=== PATIENT | female | born 1980 | race American Indian/Alaskan Native ===

== ENCOUNTER 2019-01-18 19:46 | Emergency (ER) | payer OTHER ==
[2019-01-18] MEDS ORDERED: SUBLIMAZE IV ONE (20:25)
[2019-01-18] MEDS ORDERED: ZOFRAN IV ONE (20:25)
--- NOTE | 2019-01-18 20:29 | Emergency Department Report ---
HPI - General Chief Complaint: Fall Time Seen by Provider: 01/18/19 20:15 - HPI HPI: [place] 25 The patient is a 38-year-old female presenting with a chief complaint of pain after fall. The patient states this evening while walking home she slipped and fell. Patient states she is not aware of how she landed but was told that she lost consciousness briefly. Patient complains of pain in her head, right shoulder and right side from the fall. Patient gives her pain score of 7/10 Location: [See above] Duration: [See above] Quality: Pain Severity: 7/10 Modifying factors: [see above] Context: [see above] Mode of transportation: [not driving] ED Past Medical Hx - Past Medical History Hx Hypertension: Yes - Surgical History Past Surgical History?: No - Family History Family history: no significant - Social History Smoking Status: Never Smoker Substance Use Type: None - Medications Home Medications: Home Medications Medication Instructions Recorded Confirmed Last Taken Type Cyclobenzaprine [Flexeril] 10 mg PO TID PRN #10 tablet 01/18/19 Unknown Rx HYDROcodone/APAP 5-325 [[place] 1 - 2 each PO Q6HR PRN #10 tablet 01/18/19 Unknown Rx 5/325] Ibuprofen [Motrin 800 MG tab] 800 mg PO Q8HR PRN #20 tablet 01/18/19 Unknown Rx ED Review of Systems ROS: Stated complaint: BACK PAIN(POST FALL) Other details as noted in HPI Constitutional: no symptoms reported Eyes: denies: eye pain ENT: denies: throat pain Respiratory: no symptoms reported Cardiovascular: denies: chest pain Endocrine: no symptoms reported Gastrointestinal: denies: abdominal pain Genitourinary: denies: dysuria Musculoskeletal: arthralgia, myalgia. denies: back pain Neurological: headache Physical Exam - Physical Exam Physical Exam: GENERAL: The patient is well-developed well-nourished female lying on backboard with cervical collar in place HEENT: Normocephalic. Atraumatic. Extraocular motions are intact. Patient has moist mucous membranes. NECK: Supple. Upper cervical tenderness to palpation. No axial step-off. Cervical collar in place CHEST/LUNGS: Clear to auscultation. There is no respiratory distress noted. HEART/CARDIOVASCULAR: Regular. There is no tachycardia. There is no gallop rub or murmur. ABDOMEN: Abdomen is soft, nontender. Patient has normal bowel sounds. There is no abdominal distention. SKIN: There is no rash. There is no edema. There is no diaphoresis. NEURO: The patient is awake, alert, and oriented. The patient is cooperative. The patient has no focal neurologic deficits. The patient has normal speech MUSCULOSKELETAL: There is tenderness to palpation of the right clavicle and sh oulder. There is no tenderness to palpation of the left upper extremity, or bilateral lower extremities. There is no tenderness to palpation of the axial thoracic or lumbar spine. There is no limitation range of motion. There is no evidence of acute injury. ED Medical Decision Making - Radiology Data Radiology results: report reviewed (CT head, CT cervical spine), image reviewed (CT head, CT cervical spine, right shoulder x-ray, chest x-ray with right rib series) interpreted by me: Right shoulder x-ray-no acute fracture, no dislocation Chest x-ray with right rib series x-rays-no pneumothorax. No displaced rib fractures visualized Findings [address] [address] Cat Scan Report Signed Patient: NADIA GUAJARDO MR#: [id number] : 1980 Acct:[id number] Age/Sex: 38 / F ADM Date: 01/18/19 Loc: ED Attendin g Dr: Ordering Physician: CHRISTOPH MORAES MD Date of Service: 01/18/19 Procedure(s): CT cervical spine wo con Accession Number(s): [id number] cc: CHRISTOPH MORAES MD FINAL REPORT EXAM: CT CERVICAL SPINE WO CON HISTORY: pain after fall TECHNIQUE: Helical axial CT imaging of the cervical spine. Images are reconstructed in the sagittal and coronal planes. PRIORS: None. FINDINGS: The vertebral bodies have normal height and alignment. There is no evidence of fracture or subluxation. The paraspinous soft tissues are unremarkable. IMPRESSION: No evidence of acute fracture or subluxation. Transcribed By: MARCELO Di ctated By: DERICK BARRAZA MD Electronically Authenticated By: DERICK ABRRAZA MD Signed Date/Time: 01/18/192222 DD/ 21 TD/TT: 01/18/192221 ]\ Findings [address] [place] [address] Cat Scan Report Signed Patient: NADIA GUAJARDO MR#: [id number] : 1980 Acct:[id number] Age/Sex: 38 / F ADM Date: 01/18/19 Loc: ED Attending Dr: Ordering Physician: CHRISTOPH MORAES MD Date of Service: 01/18/19 Procedure(s): CT head/brain wo con Accession Number(s): [id number] cc: CHRISTOPH MORAES MD FINAL REPORT EXAM: CT HEAD/BRAIN WO CON HISTORY: LOC after fall TECHNIQUE: CT was performed from the foramen magnum through the vertex in the axial plane without the use of intravenous contrast. PRIORS: None. FINDINGS: The artis/white matter attenuation pattern is normal. There is no mass lesion or mass effect. There are no abnormal extra-axial fluid collections. There is no evidence of acute intracranial hemorrhage or infarct. The ventricles are of normal size and configuration. The skull and orbits are unremarkable. There is mucosal thickening in the bilateral maxillary sinuses and left ethmoid air cells. IMPRESSION: Normal CT of the head. Transcribed By: MLG Dictated By: DEIRCK BARRAZA MD Electronically Authenticated By: DERICK BARRAZA MD Signed Date/Time: 01/18/192217 DD/ 16 TD/TT: 01/18/192216 - Differential Diagnosis closed head injury, cervical strain, cervical fracture, ICH Critical care attestation.: If time is entered above; I have spent that time in minutes in the direct care of this critically ill patient, excluding procedure time. ED Disposition Clinical Impression: Closed head injury, Acute cervical myofascial strain, Contusion of right shoulder Disposition: DC-01 TO HOME OR SELFCARE Is pt being admited?: No Does the pt Need Aspirin: No Condition: Stable Instructions: Muscle Strain (ED) Additional Instructions: Return to the emergency department immediately should you develop worsening symptoms, fever, inability to tolerate food or liquid or any other concerns. Prescriptions: Cyclobenzaprine [Flexeril] 10 mg PO TID PRN #10 tablet PRN Reason: Muscle Spasm HYDROcodone/APAP 5-325 [[place] 5/325] 1 - 2 each PO Q6HR PRN #10 tablet PRN Reason: Pain Ibuprofen [Motrin 800 MG tab] 800 mg PO Q8HR PRN #20 tablet PRN Reason: Pain, Moderate (4-6) Referrals: JHOAN GARCIA MD [Primary Care Provider] - 3-5 Days JOE GARCIA MD [Staff Physician] - 3-5 Days (Dr. Garcia is an orthopedic surgeon. Please follow up with him for further evaluation) Time of Disposition: 23:21
--- NOTE | 2019-01-18 22:18 | Cat Scan Report ---
FINAL REPORT EXAM: CT HEAD/BRAIN WO CON HISTORY: LOC after fall TECHNIQUE: CT was performed from the foramen magnum through the vertex in the axial plane without th e use of intravenous contrast. PRIORS: None. FINDINGS: The artis/white matter attenuation pattern is normal. There is no mass lesion or mass effect. There ar e no abnormal extra-axial fluid collections. There is no evidence of acute intracranial hemorrhage or infarct. The ventricles are of normal size and configuration. The skull and orbits are unremarkable . There is mucosal thickening in the bilateral maxillary sinuses and left ethmoid air cells. IMPRESSION: Normal CT of the head.
--- NOTE | 2019-01-18 22:23 | Cat Scan Report ---
FINAL REPORT EXAM: CT CERVICAL SPINE WO CON HISTORY: pain after fall TECHNIQUE: Helical axial CT imaging of the cervical spine. Images are reconstructed in the sagittal and coronal planes. PRIORS: None. FINDINGS: The vertebral bodies have normal height and alignment. There is no evidence of fracture or subluxatio n. The paraspinous soft tissues are unremarkable. IMPRESSION: No evidence of acute fracture or subluxation.
[2019-01-18 23:40] VITALS: BP 133/75
--- NOTE | 2019-01-18 23:41 | XRay Report ---
FINAL REPORT EXAM: XR RIBS UNI W PA CHEST 3+V RT HISTORY: pain after fall TECHNIQUE: Right ribs 4 views PRIORS: None. FINDINGS: No rib fracture identified. No bony lesions seen. No evidence of pneumothorax or pleural effusion wit hin the right sean thorax. Otherwise no acute findings. IMPRESSION: Negative rib series
--- NOTE | 2019-01-18 23:43 | XRay Report ---
FINAL REPORT EXAM: XR SHOULDER 2+V RT HISTORY: pain after fall TECHNIQUE: Three views right shoulder PRIORS: None. FINDINGS: No fractures are identified. No dislocation seen. The acromioclavicular joint is intact. Adjacent b shirley and soft tissue structures are unremarkable. IMPRESSION: Negative shoulder series
== END 2019-01-18 23:40 | disposition home or self-care (01) ==
LOC: ED 19:46
DX: S16.1XXA Strain of muscle, fascia and tendon at neck level, initial encounter (principal); S40.011A Contusion of right shoulder, initial encounter; S09.90XA Unspecified injury of head, initial encounter; I10 Essential (primary) hypertension; W01.198A Fall on same level from slipping, tripping and stumbling with subsequent striking against other object, initial encounter; Y93.89 Activity, other specified; Y92.89 Other specified places as the place of occurrence of the external cause; Y99.8 Other external cause status
CPT/HCPCS: 36415; 70450; 71101; 72125; 73030; 84703; 96374; 96375; 99285; J2405; J3010